=== PATIENT | female | born 1975 | race Caucasian/White ===

== ENCOUNTER 2020-07-02 03:31 | Emergency (ER) | payer OTHER ==
[2020-07-02 03:49] VITALS: BMI 22.2
--- NOTE | 2020-07-02 04:18 | PDOC ---
Attending Attestation - Resident Resident Name: Naldo Garcia - ED Attending Attestation I have performed the following: I have examined & evaluated the patient, The case was reviewed & discussed with the resident, I agree w/resident's findings & plan - HPI HPI: 07/02/20 04:59 Pt comes with depression. 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 Pt is neither suicidal nor homicidal. She is stable to go home with her . Discharge - Discharge Information Problems reviewed: Yes Clinical Impression/Diagnosis: Palpitations Fatigue Qualifiers: Fatigue type: unspecified Qualified Code(s): R53.83 - Other fatigue Condition: Stable - Additional Discharge Information Prescriptions: Citalopram Hydrobromide [Celexa -] 20 mg PO DAILY #30 tablet - Follow up/Referral Referrals: Luis Angel Woody MD [Staff Physician] - Rosy Zepeda [Non Staff, Medical] - Macrina Strong [Staff Physician] - Anshu Grover MD [Staff Physician] - Yelena Murphy MD [Staff Physician] - Jun Barnes MD [Non Staff, Medical] - Alexandrea Lopez MD [Non Staff, Medical] - Chandu Bradford MD [Non Staff, Medical] - Devonte Biswas [Non Staff, Medical] - Nathaniel Connolly MD [Non Staff, Medical] - Segundo Owens MD [Non Staff, Medical] - Minh Cabrera MD [Non Staff, Medical] - Isma Martinez MD [Non Staff, Medical] - Tahira Anguiano [Primary Care Provider] - Maty Coles [Non Staff, Medical] - Shaye Valadez MD [Non Staff, Medical] - Miriam Donnelly MD [Non Staff, Medical] - Yaz Logan MD [Non Staff, Medical] - - Patient Discharge Instructions Patient Printed Discharge Instructions: DI for Depression -- Adult Additional Instructions: Today you were evaluated for fatigue and palpitations. Your labs and x-ray do not show any problems. Your tiredness is being caused by depression. You need to follow-up with a psychiatrist for further care. You likely need to be on a medication for your depression in addition to your therapy, and a good option for you may be Celexa. If you experience thoughts of wanting to hurt yourself, chest pain, difficulty breathing, or any other new or concerning symptoms, please return to the emergency room. Print Language: SINHALA - Post Discharge Activity Work/Back to School Note: My Personal Safety Plan
--- NOTE | 2020-07-02 05:03 | PDOC ---
History of Present Illness - General Chief Complaint: Depression Stated Complaint: DIFF BREATHING Time Seen by Provider: 07/02/20 04:16 History Source: Patient, Family Exam Limitations: No Limitations - History of Present Illness Initial Comments: 07/02/20 04:55 Olayinka Kline is a 45F with PMH major depressive disorder presenting with fatigue and palpitations. sees Korean-speaking therapist who recently retired, has been unable to find new therapist never on medications when depressed feels tired and has poor PO intake recent stressor, depressed last 3 weeks denies SI/HI/AVH says today she feels more tired and has not been eating much at all drank Ensure today as meal replacement also reports palpitations today which she has never experienced before no chest pain, SOB, abd pain, urinary sx no history of thyroid issues sensitive to temperatures and has been losing more hair than normal LMP last week, has had 2 month span prior without period denies EtOH/tobacco/drug use NKDA no PMH or PSH Past History - Medical History Allergies/Adverse Reactions: Allergies Allergy/AdvReac Type Severity Reaction Status Date / Time No Known Allergies Allergy Verified 07/02/20 03:45 Home Medications: Ambulatory Orders No Home Medications 0 dose .ROUTE UTDICT 08/01/13 Psychiatric Problems: Yes (Depression) - Surgical History Appendectomy: Yes Cholecystectomy: Yes - Reproductive History Is Patient Now?: No - Psycho-Social/Smoking History Smoking Status: No Smoking History: Never smoked Number of Cigarettes Smoked Daily: 0 Information on smoking cessation initiated: No - Substance Abuse Hx (Audit-C & DAST Scrn) How often the patient has a drink containing alcohol: Monthly or less Number of drinks the patient has on a typical day: 1 or 2 How often the patient has six or more drinks on one occasion: Less than monthly Score: In Men: 4 or > Positive; In Women: 3 or > Positive: 2 Screen Result (Pos requires Nsg. Audit-10AR): Negative In the last yr the pt used illegal drug/Rx for NonMed reason: No Score: Yes response is considered Positive: 0 Screen Result (Positive result requires Nsg. DAST-10): Negative Review of Systems - Review of Systems Able to Perform ROS?: Yes Constitutional: Yes: Loss of Appetite, Malaise, Weakness HEENTM: No: Symptoms Reported Respiratory: No: Symptoms reported Cardiac (ROS): Yes: Palpitations. No: Chest Pain, Edema, Irregular Heart Rate, Lightheadedness, Syncope ABD/GI: Yes: Poor Appetite, Poor Fluid Intake. No: Constipated, Diarrhea, Nausea, Vomiting : No: Symptoms Reported Musculoskeletal: No: Symptoms Reported Integumentary: No: Symptoms Reported Neurological: No: Symptoms reported Psychiatric: Yes: Anxiety, Depression, Stressors Endocrine: Yes: Intolerance to Cold Hematologic/Lymphatic: No: Symptoms Reported All Other Systems: Reviewed and Negative *Physical Exam - Vital Signs Last Vital Signs Temp Pulse Resp BP Pulse Ox 98.6 F 78 18 138/94 98 07/02/20 03:43 07/02/20 03:43 07/02/20 03:43 07/02/20 03:43 07/02/20 03:43 - Physical Exam General Appearance: Yes: Nourished, Appropriately Dressed, Other (resting in be d, depressed mood, broad affect). No: Apparent Distress HEENT: positive: EOMI, HERMES, Normal Voice, Symmetrical, Pharynx Normal, Hearing Grossly Normal. negative: Scleral Icterus (R), Scleral Icterus (L), Pharyngeal Erythema, Tonsillar Exudate, Tonsillar Erythema Neck: positive: Trachea midline, Normal Thyroid, Supple. negative: Tender, Rigid, Lymphadenopathy (R), Lymphadenopathy (L), Tender lateral, Tender midline Respiratory/Chest: positive: Lungs Clear, Normal Breath Sounds. negative: Chest Tender, Respiratory Distress, Accessory Muscle Use, Crackles, Rales, Rhonchi, Stridor, Wheezing Cardiovascular: positive: Regular Rhythm, Regular Rate. negative: Murmur, Tachycardia Gastrointestinal/Abdominal: positive: Normal Bowel Sounds, Flat, Soft. negative: Tender, Organomegaly, Protuberent, Distended, Guarding, Rebound, Tenderness, Hernia Musculoskeletal: positive: Normal Inspection. negative: CVA Tenderness, Decreased Range of Motion, Vertebral Tenderness Extremity: positive: Normal Capillary Refill, Normal Inspection, Normal Range of Motion, Pelvis Stable. negative: Tender, Pedal Edema, Swelling, Calf Tenderness Integumentary: positive: Normal Color, Dry, Warm Neurologic: positive: dial brusher II-XII NML intact, Fully Oriented, Alert, Normal Mood/Affect, Normal Response, Motor Strength 5/5. negative: Sensory Deficit ED Treatment Course - LABORATORY CBC & Chemistry Diagram: 07/02/20 05:20 07/02/20 05:20 - RADIOLOGY Radiology Studies Ordered: Category Date Time Status CHEST X-RAY PORTABLE* [RAD] Stat Radiology 07/02/20 04:46 Ordered Medical Decision Making - Medical Decision Making 07/02/20 05:06 Patient presents with fatigue, palpitations, poor PO intake, and depressed mood. No SI/HI. Likely MDD, but concerned for ACS vs. metabolic disturbance vs. thyroid pathology. Getting CBC/CMP/CP/ECG/CXR/TSH/ for eval fatigue. If normal, consider d/c with psychiatry referral, may be candidate for SSRI treatment. ECG NSR with sinus arrhythmia, HR 68, QTc 421, no YOLI/D or TWI. CXR unremarkable. 07/02/20 06:25 Labs notable for: - CBC WNL - CMP NWL - TSH WNL - negative No abnormalities noted. Fatigue is 2/2 MDD, no metabolic or cardiac abnormalities concerning at this time. Referring to psychiatry and PMD, stable for discharge home. Discharge - Discharge Information Problems reviewed: Yes Clinical Impression/Diagnosis: Palpitations Fatigue Qualifiers: Fatigue type: unspecified Qualified Code(s): R53.83 - Other fatigue Condition: Stable - Admission No - Follow up/Referral Referrals: Carol Anguiano-Barrett Hyde [Primary Care Provider] - Luis Angel Woody MD [Staff Physician] - Rosy Zepeda [Non Staff, Medical] - Macrina Strong [Staff Physician] - Alexandrea Lopez MD [Non Staff, Medical] - Jun Barnes MD [Non Staff, Medical] - Anshu Grover MD [Staff Physician] - Yaz Logan MD [Non Staff, Medical] - Miriam Donnelly MD [Non Staff, Medical] - Maty Coles [Non Staff, Medical] - Shaye Valadez MD [Non Staff, Medical] - Devonte Biswas [Non Staff, Medical] - Nathaniel Connolly MD [Non Staff, Medical] - Segundo Owens MD [Non Staff, Medical] - Minh Cabrera MD [Non Staff, Medical] - Isma Martinez MD [Non Staff, Medical] - Chandu Bradford MD [Non Staff, Medical] - Yelena Murphy MD [Staff Physician] - - Patient Discharge Instructions Patient Printed Discharge Instructions: DI for Depression -- Adult Additional Instructions: Today you were evaluated for fatigue and palpitations. Your labs and x-ray do not show any problems. Your tiredness is being caused by depression. You need to follow-up with a psychiatrist for further care. You likely need to be on a medication for your depression in addition to your therapy, and a good option for you may be Celexa. If you experience thoughts of wanting to hurt yourself, chest pain, difficulty breathing, or any other new or concerning symptoms, ple ase return to the emergency room. Print Language: ITALIAN - Post Discharge Activity Work/Back to School Note: My Personal Safety Plan
[2020-07-02 05:56] LABS: BASO % 0.4 % (0-2.0); EOS % 1.4 % (0-4.5); HEMATOCRIT 38.6 % (32.4-45.2); HEMOGLOBIN 13.1 GM/dL (10.7-15.3); LYMPH % 16.4 % (8-40); MCH 28.6 pg (25.7-33.7); MEAN CELL VOLUME 84.1 fl (80-96); MEAN PLT VOLUME 7.5 fl (7.5-11.1); MONO % 5.3 % (3.8-10.2); NEUT % 76.5 % (42.8-82.8); PLATELET COUNT 266 K/MM3 (134-434); RBC 4.59 M/mm3 (3.60-5.2); RDW 13.7 % (11.6-15.6); WHITE BLOOD COUNT 6.9 K/mm3 (4.0-10.0)
[2020-07-02 06:18] VITALS: BP 141/79; PULSE 60; TEMP 98.4
[2020-07-02 06:21] LABS: ALBUMIN 4.3 g/dl (3.4-5.0); ALK PHOS 57 U/L (45-117); ANION GAP 5 MMOL/L (8-16); BILIRUBIN,TOTAL 1.5 mg/dL (0.2-1); BLOOD UREA NITROGEN 12.3 mg/dL (7-18); CALCIUM 9.4 mg/dL (8.5-10.1); CHLORIDE 104 mmol/L (98-107); CO2 30 mmol/L (21-32); CREATININE 0.7 mg/dL (0.55-1.3); GLUCOSE,RANDOM 90 mg/dL (74-106); MAGNESIUM 2.3 mg/dL (1.8-2.4); POTASSIUM 4.2 mmol/L (3.5-5.1); SGOT/AST 11 U/L (15-37); SGPT/ALT 22 U/L (13-61); SODIUM 139 mmol/L (136-145); TOT PROT 7.6 g/dl (6.4-8.2)
--- NOTE | 2020-07-03 10:57 | EKG ---
Test Reason : Blood Pressure : / mmHG Vent. Rate : 068 BPM Atrial Rate : 068 BPM P-R Int : 114 ms QRS Dur : 078 ms QT Int : 396 ms P-R-T Axes : 048 011 051 degrees QTc Int : 421 ms NORMAL SINUS RHYTHM WITH SINUS ARRHYTHMIA NORMAL ECG WHEN COMPARED WITH ECG OF 17-SEP-2018 10:49, NO SIGNIFICANT CHANGE WAS FOUND Confirmed by BENJAMIN GARCIA MD ([id number]) on 07/03/2020 10:56:40 AM Referred By: Confirmed By:BENJAMIN GARCIA MD
== END 2020-07-02 06:49 ==
LOC: JER 03:31
DX: R00.2 Palpitations (principal); R53.83 Other fatigue
CPT/HCPCS: 36415; 71045-TC-FY; 80053; 82550; 83735; 84443; 84484; 84703; 85025; 93005; 93010; 99285-25

== ENCOUNTER 2020-07-03 15:48 | Emergency (ER) | payer OTHER ==
--- NOTE | 2020-07-03 16:00 | PDOC ---
Rapid Medical Evaluation Time Seen by Provider: 07/03/20 15:58 Medical Evaluation: Allergies Allergy/AdvReac Type Severity Reaction Status Date / Time No Known Allergies Allergy Verified 07/02/20 03:45 07/03/20 15:58 I performed a brief in-person evaluation of this patient. Pt is a 45 y/o female who presents to the ED with complaint of increased depression for the last few weeks. She has not been sleeping or eating. She denies any suicidal ideation. No drug/alcohol use. Taking medication for depression. Pertinent physical exam findings: Walking without ataxia, speaking in full sentences, tearful. I have ordered the following: deferred to the treating provider's discretion. Patient to proceed to ED for further evaluation. Discharge Disposition - Diagnosis Depression - Referrals - Patient Instructions - Post Discharge Activity
[2020-07-03 16:05] VITALS: BP 138/93; PULSE 80; TEMP 98.4; BMI 22.2
[2020-07-03] MEDS ORDERED: SODIUM CHLORIDE 1,000 ML IV STA (17:28)
--- OUTSIDE RECORDS SUMMARY | 2020-07-03 17:30 | XMS ---
:1975 Author Organization [facility] Support Name Relationship Address Phone B[place] [address] DANIELLA GALAVIZ SON [address] [phone] [place] [address] ANSELMO POZO MOTHER [address] [phone] [place] [address] ANSELMO POZO Mother [address] [place] [address] Re-disclosure Warning The records that you are about to access may contain information from federally- assisted alcohol or drug abuse programs. If such information is present, then the following federally mandated warning applies: This information has been disclosed to you from records protected by federal confidentiality rules (42 CFR part 2). The federal rules prohibit you from making any further disclosure of this information unless further disclosure is expressly permitted by the written consent of the person to whom it pertains or as otherwise permitted by 42 CFR part 2. A general authorization for the release of medical or other information is NOT sufficient for this purpose. The Federal rules restrict any use of the information to criminally investigate or prosecute any alcohol or drug abuse patient.The records that you are about to access may contain highly sensitive health information, the redisclosure of which is protected by Article 27-F of the [facility] Public Health law. If you continue you may haveaccess to information: Regarding HIV / AIDS; Provided by facilities licensed or operated by the [facility] Office of Mental Health; or Provided by the [facility] Office for People With Developmental Disabilities. If such information is present, then the following [facility] mandated warning applies: This information has been disclosed to you from confidential records which are protected by state law. State law prohibits you from making any further disclosure of this information without the specific written consent of the person to whom it pertains, or as otherwise permitted by law. Any unauthorized further disclosure in violation of state law may result in a fine or senior care sentence or both. A general authorization for the release of medical or other information is NOT sufficient authorization for further disclosure. Insurance Providers Payer name Policy type Policy ID Covered Covered libertarian's Policy P nicolas / Coverage libertarian ID relationship to [employer] type [place] [employer] [id number]
--- NOTE | 2020-07-03 18:19 | PDOC ---
History of Present Illness - General Chief Complaint: Depression Stated Complaint: WEAKNESS Time Seen by Provider: 07/03/20 15:58 History Source: Patient Exam Limitations: No Limitations Past History - Travel History Traveled outside of the country in the last 30 days: No Close contact w/someone who was outside of country & ill: No - Medical History Allergies/Adverse Reactions: Allergies Allergy/AdvReac Type Severity Reaction Status Date / Time No Known Allergies Allergy Verified 07/03/20 15:58 Home Medications: Ambulatory Orders Citalopram Hydrobromide [Celexa -] 20 mg PO DAILY #30 tablet 07/02/20 COPD: No Psychiatric Problems: Yes (Depression) - Surgical History Appendectomy: Yes Cholecystectomy: Yes - Reproductive History Is Patient Now?: No - Psycho-Social/Smoking History Smoking Status: No Smoking History: Never smoked Number of Cigarettes Smoked Daily: 0 - Substance Abuse Hx (Audit-C & DAST Scrn) How often the patient has a drink containing alcohol: Never Score: In Men: 4 or > Positive; In Women: 3 or > Positive: 0 Screen Result (Pos requires Nsg. Audit-10AR): Negative In the last yr the pt used illegal drug/Rx for NonMed reason: No Score: Yes response is considered Positive: 0 Screen Result (Positive result requires Nsg. DAST-10): Negative Review of Systems - Review of Systems Able to Perform ROS?: Yes Comments:: 07/03/20 17:36 CONSTITUTIONAL: Absent: fever, chills, diaphoresis, generalized weakness, malaise, loss of appetite HEENT: Absent: rhinorrhea, nasal congestion, throat pain, throat swelling, difficulty swallowing, mouth swelling, ear pain, eye pain, visual Changes CARDIOVASCULAR: Absent: chest pain, loss of consciousness, palpitations, irregular heart rate, peripheral edema RESPIRATORY: Absent: cough, shortness of breath, dyspnea with exertion, orthopnea, wheezing, stridor, hemoptysis GASTROINTESTINAL: Absent: abdominal pain, abdominal distension, nausea, vomiting, diarrhea, constipation, melena, hematochezia GENITOURINARY: Absent: dysuria, frequency, urgency, hesitancy, hematuria, flank pain, genital pain MUSCULOSKELETAL: Absent: myalgia, arthralgia, joint swelling SKIN: Absent: rash, itching, pallor HEMATOLOGIC/IMMUNOLOGIC: Absent: easy bleeding, easy bruising, lymphadenopathy, frequent infections ENDOCRINE: Absent: unexplained weight gain, unexplained weight loss, heat intolerance, cold intolerance NEUROLOGIC: Absent: headache, focal weakness or paresthesias, dizziness, unsteady gait, seizure, mental status changes, bladder or bowel incontinence PSYCHIATRIC: Present: anxiety, depression, insomnia Absent: suicidal or homicidal ideation, hallucinations. Is the patient limited Arabic proficient: No *Physical Exam - Vital Signs Last Vital Signs Temp Pulse Resp BP Pulse Ox 98.4 F 80 14 138/93 100 07/03/20 15:59 07/03/20 15:59 07/03/20 15:59 07/03/20 15:59 07/03/20 15:59 - Physical Exam 07/03/20 20:02 GENERAL: Well developed, well nourished. Awake and alert. No acute distress. HEENT: Normocephalic, atraumatic. PERRLA, EOMI. No conjunctival pallor. Sclera are non- icteric. Moist mucous membranes. Oropharynx is clear. NECK: Supple. Full ROM. No JVD. Carotid pulses 2+ and symmetric, without bruits. No thyromegaly. No lymphadenopathy. CARDIOVASCULAR: Regular rate and rhythm. No murmurs, rubs, or gallops. Distal pulses are 2+ and symmetric. PULMONARY: No evidence of respiratory distress. Lungs clear to auscultation bilaterally. No wheezing, rales or rhonchi. ABDOMINAL: Soft. Non-tender. Non-distended. No rebound or guarding. No organomegaly. Normoactive bowel sounds. MUSCULOSKELETAL Normal range of motion at all joints. No bony deformities or tenderness. No CVA tenderness. EXTREMITIES: No cyanosis. No clubbing. No edema. No calf tenderness. SKIN: Warm and dry. Normal capillary refill. No rashes. No jaundice. NEUROLOGICAL: Alert, awake, appropriate. Cranial nerves 2-12 intact. No deficits to light touch and temperature in face, upper extremities and lower extremities. No motor deficits in the in face, upper extremities and lower extremities. Normoreflexic in the upper and lower extremities. Normal speech. Toes are down-going bilaterally. Gait is normal without ataxia. PSYCHIATRIC: Poor eye contact. Pressured speech. Denies suicidal ideation, homicidal ideation, A/V hallucinations. ED Treatment Course - LABORATORY CBC & Chemistry Diagram: 07/03/20 18:11 07/03/20 20:11 Medical Decision Making - Medical Decision Making 07/03/20 20:04 Patient is a 45-year-old male past medical history of depression, anxiety, presents to the ER for increasing lightheadedness, dizziness and nausea since yesterday. She states that she was seen in our ER and started on an SSRI for her depression. She states she had not taken this medication before prior to today which was her first dose. She states that she does not want to eat and does not want to get out of bed she is having increasing feelings of depression. She also notes that she has insomnia and has been unable to sleep. She states she is unable to get out of bed due to weakness and not sleeping. Denies suicidal ideation, homicidal ideation, audiovisual hallucinations. A/P: Depression On exam patient's vital signs are within normal limits and stable. Basic labs redrawn to compare from yesterday. Explained to patient that this is likely a medication side effect and should improve within the next 2 to 3 days after starting the medications. Fluids given. Likely discharge home once labs have resulted. CMP still not resulted from lab after 2+ hours. Will resend new lab draw. Referred to psychiatry for further management of her antidepressant and therapy. Discharge - Discharge Information Problems reviewed: Yes Clinical Impression/Diagnosis: Depression Qualifiers: Depression Type: unspecified Qualified Code(s): F32.9 - Major depressive disorder, single episode, unspecified Condition: Stable Disposition: HOME - Admission No - Follow up/Referral Referrals: Tahira Anguiano [Primary Care Provider] - Dandy Butler NP [Nurse Practitioner] - - Patient Discharge Instructions Patient Printed Discharge Instructions: DI for Depression -- Adult Additional Instructions: Eat and drink small meals throughout the day to prevent getting lightheaded. Take your SSRI as directed. Please follow-up with psychiatry as soon as possible. A referral has been provided to you. Return to the ER immediately for thoughts of wanting to hurt yourself or others, thoughts of suicide or if you have any changes in your symptoms Coma y kelvin comidas pequeas tammie todo el da para evitar que se enciendan. [place] scott ISRS latesha se indica. Por favor, danika un seguimiento de la psiquiatra bahena pronto latesha sea posible. Se le molina proporcionado beau referencia. Regrese a Urgencias inmediatamente para pensar en querer lastimarse a s mismo o a los dems, pensamientos de suicidio o si tiene algn cambio en candido sntomas' [facility] 12/05 Evaluation and Referral Services: or toll free [phone] Crisis Prevention and Response Team ([facility]): Print Language: NICARAGUAN - Post Discharge Activity Work/Back to School Note: My Personal Safety Plan
[2020-07-03 18:25] LABS: BASO % 0.6 % (0-2.0); EOS % 0.9 % (0-4.5); HEMATOCRIT 40.3 % (32.4-45.2); HEMOGLOBIN 13.6 GM/dL (10.7-15.3); LYMPH % 16.3 % (8-40); MCH 28.5 pg (25.7-33.7); MCHC 33.7 g/dl (32.0-36.0); MEAN CELL VOLUME 84.5 fl (80-96); MEAN PLT VOLUME 9.4 fl (7.5-11.1); MONO % 7.5 % (3.8-10.2); NEUT % 74.7 % (42.8-82.8); PLATELET COUNT 289 K/MM3 (134-434); RBC 4.76 M/mm3 (3.60-5.2); RDW 13.6 % (11.6-15.6); WHITE BLOOD COUNT 11.5 K/mm3 (4.0-10.0)
--- NOTE | 2020-07-03 19:52 | PDOC ---
*Physical Exam - Vital Signs Last Vital Signs Temp Pulse Resp BP Pulse Ox 98.4 F 80 14 138/93 100 07/03/20 15:59 07/03/20 15:59 07/03/20 15:59 07/03/20 15:59 07/03/20 15:59 - Physical Exam General Appearance: Yes: Appropriately Dressed ED Treatment Course - LABORATORY CBC & Chemistry Diagram: 07/03/20 18:11 07/03/20 20:11 - ADDITIONAL ORDERS Additional order review: 07/03/20 18:11 RBC 4.76 MCV 84.5 MCHC 33.7 RDW 13.6 MPV 9.4 D Neutrophils % 74.7 Lymphocytes % 16.3 Monocytes % 7.5 Eosinophils % 0.9 Basophils % 0.6 Medical Decision Making - Medical Decision Making 07/03/20 22:20 Requesting 1 dose of medication for sleep tonight. Will give a dose of melatonin. Patient will be given referral to psychiatric follow-up.. Strict return precautions were reviewed with patient patient verbalized understanding. Patient is going home with daughter. denies hi/ si referral info to [facility] given Discharge - Discharge Information Problems reviewed: Yes Clinical Impression/Diagnosis: Depression Qualifiers: Depression Type: unspecified Qualified Code(s): F32.9 - Major depressive disorder, single episode, unspecified Condition: Stable Disposition: HOME - Follow up/Referral Referrals: Dandy Butler NP [Nurse Practitioner] - Tahira Anguiano [Primary Care Provider] - - Patient Discharge Instructions Patient Printed Discharge Instructions: DI for Depression -- Adult Additional Instructions: Eat and drink small meals throughout the day to prevent getting lightheaded. Take your SSRI as directed. Please follow-up with psychiatry as soon as possible. A referral has been provided to you. Return to the ER immediately for thoughts of wanting to hurt yourself or others, thoughts of suicide or if you have any changes in your symptoms Coma y kelvin comidas pequeas tammie todo el da para evitar que se enciendan. [place] scott ISRS latesha se indica. Por favor, danika un seguimiento de la psiquiatra bahena pronto latesha sea posible. Se le molina proporcionado beau referencia. Regrese a Urgencias inmediatamente para pensar en querer lastimarse a s mismo o a los dems, pensamientos de suicidio o si tiene algn cambio en candido sntomas' [facility] 12/05 Evaluation and Referral Services: or toll free Crisis Prevention and Response Team ([facility]): Print Language: MOLDOVAN - Post Discharge Activity Work/Back to School Note: My Personal Safety Plan
[2020-07-03 20:10] LABS: PLATELET ESTIMATE NORMAL
[2020-07-03 21:46] LABS: ALBUMIN 3.7 g/dl (3.4-5.0); BILIRUBIN,TOTAL 0.9 mg/dL (0.2-1); BLOOD UREA NITROGEN 3.4 mg/dL (7-18); CALCIUM 8.3 mg/dL (8.5-10.1); CREATININE 0.7 mg/dL (0.55-1.3); TOT PROT 6.5 g/dl (6.4-8.2)
[2020-07-03] MEDS ORDERED: MELATONIN 5 MG TABLETS PO ONE (22:19)
[2020-07-03] MEDS ORDERED: MELATONIN 5 MG TABLETS ONE (22:27)
== END 2020-07-03 22:53 | disposition home or self-care (01) ==
LOC: JER 15:48
PROC: 3E0337Z Introduction of Electrolytic and Water Balance Substance into Peripheral Vein, Percutaneous Approach (ICD-10-PCS; principal; 2020-07-03)
DX: F32.9 Major depressive disorder, single episode, unspecified (principal)
CPT/HCPCS: 36415; 80053; 85025; 99284-25

== ENCOUNTER 2022-05-08 13:47 | Emergency (ER) | payer OTHER ==
[2022-05-08 14:12] VITALS: BP 158/90; PULSE 78; TEMP 98.5; BMI 23.6
== END 2022-05-08 16:10 | disposition home or self-care (01) ==
LOC: JER 13:47
DX: J06.9 Acute upper respiratory infection, unspecified (principal); R09.82 Postnasal drip
CPT/HCPCS: 71046-TC-FY; 93005; 93010; 99284-25

== ENCOUNTER 2022-06-18 11:12 | Emergency (ER) | payer OTHER ==
[2022-06-18 11:19] VITALS: TEMP 98.3; BMI 22.4
[2022-06-18 12:00] LABS: BASO % 0.6 % (0-2.0); EOS % 1.9 % (0-4.5); HEMATOCRIT 31.1 % (32.4-45.2); HEMOGLOBIN 10.1 GM/dL (10.7-15.3); LYMPH % 30.4 % (8-40); MCH 23.4 pg (25.7-33.7); MCHC 32.7 g/dl (32.0-36.0); MEAN CELL VOLUME 71.7 fl (80-96); MONO % 7.4 % (3.8-10.2); NEUT % 59.7 % (42.8-82.8); PLATELET COUNT 389 10^3/uL (134-434); RBC 4.33 M/mm3 (3.60-5.2); RDW 16.2 % (11.6-15.6); WHITE BLOOD COUNT 5.9 K/mm3 (4.0-10.0)
[2022-06-18 12:10] LABS: INR 1.05 (0.83-1.09); PROTHROMBIN TIME (PATIENT) 12.1 SEC (9.7-13.0)
[2022-06-18 12:12] LABS: ACTIVATED PTT 34.7 SECONDS (25.2-36.5)
[2022-06-18 12:47] LABS: BLOOD UREA NITROGEN 10.2 mg/dL (7-18)
[2022-06-18 12:49] LABS: CALCIUM 9.2 mg/dL (8.5-10.1); CREATININE 0.7 mg/dL (0.55-1.3)
[2022-06-18 12:51] LABS: ALBUMIN 4.2 g/dl (3.4-5.0); BILIRUBIN,TOTAL 1.1 mg/dL (0.2-1); TOT PROT 7.7 g/dl (6.4-8.2)
[2022-06-18 13:50] VITALS: BP 141/82; PULSE 52; RESP 17
== END 2022-06-18 14:01 | disposition home or self-care (01) ==
LOC: JER 11:12
DX: R20.2 Paresthesia of skin (principal)
CPT/HCPCS: 36415; 70450-TC; 71045-TC-FY; 80053; 80061; 82962; 84443; 84484; 84702; 85025; 85610; 85730; 93005; 93010; 99284-25; C9803-CS; U0003; U0005

== ENCOUNTER 2022-08-27 04:32 | Day surgery (SDC) | payer OTHER ==
[2022-08-22 16:08] VITALS: BMI 24.4
[2022-08-27 09:08] VITALS: TEMP 98.1
[2022-08-27 13:08] VITALS: BP 134/78; PULSE 62; RESP 17
== END 2022-08-27 09:40 | disposition home or self-care (01) ==
LOC: JASU-ENDO 04:32
PROVIDERS: ATTEND Internal Medicine Gastroenterology
PROC: 0DJD8ZZ Inspection of Lower Intestinal Tract, Via Natural or Artificial Opening Endoscopic (ICD-10-PCS; principal; 2022-08-27 08:30)
DX: Z12.11 Encounter for screening for malignant neoplasm of colon (principal); K64.8 Other hemorrhoids
CPT/HCPCS: 81025

== ENCOUNTER 2024-01-04 09:01 | Emergency (ER) | payer OTHER ==
[2024-01-04 09:08] VITALS: BP 128/86; PULSE 72; RESP 18; TEMP 99.5; BMI 27.1
[2024-01-04] MEDS ORDERED: METHOCARBAMOL 500 MG TABLET ONE (09:26)
[2024-01-04] MEDS ORDERED: LIDOCAINE 5% TOPICAL PATCH ONE (09:26)
[2024-01-04] MEDS: LIDOCAINE 5% TOPICAL PATCH TP ONE (09:52)
[2024-01-04] MEDS: IBUPROFEN 600 MG TABLET (FP) PO ONE (09:53)
[2024-01-04] MEDS: METHOCARBAMOL 500 MG TABLET PO ONE (09:54)
[2024-01-04] MEDS ORDERED: LIDOCAINE PATCH REMOVAL MC SCH (22:00)
== END 2024-01-04 11:23 | disposition home or self-care (01) ==
LOC: FER 09:01
DX: M25.552 Pain in left hip (principal); M65.252 Calcific tendinitis, left thigh
CPT/HCPCS: 73502-TC-LT-FY; 99283-25